=== PATIENT | male | born 1950 | race Caucasian/White ===

== ENCOUNTER 2020-11-13 09:54 | Observation (INO) | payer MEDICARE ==
[2020-11-13] MEDS ORDERED: ASPIRIN 81 MG PO STA (10:01)
[2020-11-13 10:26] LABS: Basophils % (A) 1 %; Eosinophils # (A) 0.1 k/uL (0-0.7); Eosinophils % (A) 2 %; HCT 46.6 % (39.0-53.0); HGB 15.4 gm/dL (13.0-17.5); Lymphocytes % (A) 22 %; MCH 30.5 pg (25.0-35.0); MCHC 33.2 g/dL (31.0-37.0); MCV 92.1 fL (80.0-100.0); Mean Platelet Volume 6.9; Monocytes # (A) 0.2 k/uL (0-1.0); Monocytes % (A) 5 %; Neutrophils # (A) 3.3 k/uL (1.3-7.7); Neutrophils % (A) 69 %; Platelet Count 155 k/uL (150-450); RBC 5.06 m/uL (4.30-5.90); RDW 14.5 % (11.5-15.5); WBC 4.8 k/uL (3.8-10.6)
--- NOTE | 2020-11-13 10:35 | ED ---
Chest Pain HPI - General Chief Complaint: Chest Pain Stated Complaint: Chest pain Time Seen by Provider: 11/13/20 10:00 Source: patient, family, RN notes reviewed Mode of arrival: ambulatory Limitations: no limitations - History of Present Illness Initial Comments: 70-year-old male presents emergency Department chief complaint chest discomfort. Patient states his started last night worsened today. Patient states on his left side rates his left shoulder. Patient states she does have some symptoms into his left hand he does have a history of A. fib on Xarelto no prior cardiac stents does have a history of hypertension hyperlipidemia. 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 No fevers or chills no cough or cold like symptoms no shortness of breath - Related Data Home Medications Medication Instructions Recorded Confirmed Allopurinol [Zyloprim] 300 mg PO HS 12/12/14 11/13/20 Ascorbic Acid [Vitamin C] 500 mg PO HS 12/12/14 11/13/20 Flecainide Acetate [Tambocor] 100 mg PO BID PRN 12/12/14 11/13/20 Irbesartan 300 mg PO DAILY 12/12/14 11/13/20 Levothyroxine Sodium [Synthroid] 200 mcg PO MOTUWETHFRSA 12/12/14 11/13/20 Multivitamins, Thera [Multivitamin 1 tab PO HS 12/12/14 11/13/20 (formulary)] Omeprazole [PriLOSEC] 20 mg PO AC-BRKFST 12/12/14 11/13/20 Rivaroxaban [Xarelto] 20 mg PO HS 12/12/14 11/13/20 Cbd Cream 1 applic TOPICAL DAILY PRN 11/13/20 11/13/20 DULoxetine HCL [Cymbalta] 60 mg PO BID 11/13/20 11/13/20 Glimepiride [Amaryl] 1 mg PO BID 11/13/20 11/13/20 L.acidoph,Paracasei, B.lactis 1 cap PO HS 11/13/20 11/13/20 [Probiotic] Melatonin 10 mg PO HS 11/13/20 11/13/20 Polyethylene Glycol 3350 [Miralax] 17 gm PO DAILY 11/13/20 11/13/20 Pregabalin [Lyrica] 150 mg PO BID 11/13/20 11/13/20 Stool Softner 1 tab PO BID 11/13/20 11/13/20 Tamsulosin [Flomax] 0.4 mg PO BID 11/13/20 11/13/20 amLODIPine [Norvasc] 5 mg PO HS 11/13/20 11/13/20 traMADol HCL 50 mg PO BID 11/13/20 11/13/20 Allergies Allergy/AdvReac Type Severity Reaction Status Date / Time ampicillin Allergy high fever Verified 11/13/20 11:11 chlorthalidone Allergy Rash/Hives Verified 11/13/20 11:11 tolmetin sodium Allergy Chest Pain Verified 11/13/20 11:11 [From Tolectin] Review of Systems ROS Statement: Those systems with pertinent positive or pertinent negative responses have been documented in the HPI. ROS Other: All systems not noted in ROS Statement are negative. Past Medical History Past Medical History: Atrial Fibrillation, Diabetes Mellitus, Hypertension Additional Past Medical History / Comment(s): See Dr Black H&P, hx skin cancer, "borderline liver enzymes", gout, History of Any Multi-Drug Resistant Organisms: None Reported Past Surgical History: Cardiac Ablation, Heart Catheterization, Joint Replacement, Orthopedic Surgery, Tonsillectomy Additional Past Surgical History / Comment(s): left hip replacement, charles carpal tunnel, surgery for sleep apnea, rt rotator cuff, 12-13-14 CARDIAC ABLATION Past Anesthesia/Blood Transfusion Reactions: No Reported Reaction Past Psychological History: No Psychological Hx Reported Smoking Status: Never smoker Past Alcohol Use History: None Reported Past Drug Use History: None Reported - Past Family History Father Family Medical History: Deep Vein Thrombosis (DVT) General Exam Limitations: no limitations General appearance: alert, in no apparent distress Head exam: Present: atraumatic, normocephalic, normal inspection Eye exam: Present: normal appearance, PERRL, EOMI. Absent: scleral icterus, conjunctival injection, periorbital swelling ENT exam: Present: normal exam, mucous membranes moist Neck exam: Present: normal inspection. Absent: tenderness, meningismus, lymphadenopathy Respiratory exam: Present: normal lung sounds bilaterally. Absent: respiratory distress, wheezes, rales, rhonchi, stridor Cardiovascular Exam: Present: regular rate, normal rhythm, normal heart sounds. Absent: systolic murmur, diastolic murmur, rubs, gallop, clicks GI/Abdominal exam: Present: soft, normal bowel sounds. Absent: distended, tenderness, guarding, rebound, rigid Course Vital Signs 11/13/20 09:56 Temperature 97.5 F L Pulse Rate 74 Respiratory 20 Rate Blood Pressure 124/73 O2 Sat by Pulse 98 Oximetry Chest Pain MDM - MDM 70-year-old male in for chest pain. Patient's workup is negative this time. Patient does have multiple risk factors will be admitted for cardiology evaluation. Patient is currently on anticoagulation will be continued. Disposition Clinical Impression: Chest pain Disposition: ADMITTED IP TO THIS HOSP Condition: Fair Referrals: Flip Colon DO [Primary Care Provider] - 1-2 days
[2020-11-13 10:37] LABS: INR 1.1 (<1.2); Partial Thromboplastin Time 29.6 sec (22.0-30.0); Prothrombin Time 11.7 sec (9.0-12.0)
[2020-11-13 10:50] LABS: Albumin 4.3 g/dL (3.5-5.0); Calcium 11.1 mg/dL (8.4-10.2); Magnesium 1.9 mg/dL (1.6-2.3); Potassium 4.4 mmol/L (3.5-5.1); Total Bilirubin 0.6 mg/dL (0.2-1.3); Total Protein 6.9 g/dL (6.3-8.2)
--- NOTE | 2020-11-13 11:10 | XR ---
EXAMINATION TYPE: XR chest 2V DATE OF EXAM: 11/13/2020 COMPARISON: 12/10/2014 HISTORY: Shortness of breath TECHNIQUE: Frontal and lateral views of the chest are obtained. FINDINGS: Scattered senescent parenchymal changes noted. Hyperinflation compatible with COPD. No evidence for infiltrate. No evidence for atelectasis. Heart size is stable. Mediastinal structures are stable and grossly unremarkable. No evidence for hilar prominence. Degenerative changes dorsal spine. IMPRESSION: 1. No evidence for acute pulmonary disease.
[2020-11-13] MEDS ORDERED: NITROGLYCERIN SL TABS 0.4 MG TAB SUBLINGUAL PRN (11:48)
[2020-11-13] MEDS ORDERED: FLECAINIDE 50 MG TAB PO PRN (11:50)
[2020-11-13] MEDS ORDERED: CBD TOPICAL PRN (11:50)
[2020-11-13] MEDS: LEVOTHYROXINE 100 MCG TAB PO SCH (13:11)
[2020-11-13] MEDS ORDERED: RX INFO: IV CONTRAST WAS GIVEN 1 EACH MISC MISCELLANE PRN (13:48)
--- NOTE | 2020-11-13 16:54 | CT ---
CT CHEST FOR PULMONARY EMBOLISM. EXAMINATION TYPE: CT angio chest DATE OF EXAM: 11/13/2020 INDICATION: R/O dissection pt c/o back pain between shoulders CT DLP: 690 mGycm, Automated exposure control for dose reduction was used. CONTRAST: Patient injected with 100 mL of Isovue 370. COMPARISON: None TECHNIQUE: CT of the chest is performed on a spiral scan at 2 mm thick sections. Study is performed with intravenous contrast timed for evaluation for aortic dissection. This will limit additional por tions of the evaluation. 3-D MIP images reconstructed by the technologist are reviewed on the [facility] er in the coronal and sagittal planes. FINDINGS: No suspicious aortic dissection is evident. No aneurysmal dilatation is evident. No mediastinal or hilar adenopathy enlarged by CT criteria is evident. The ascending aorta diameter at the level of the main pulmonary artery is 3.9 cm. The main pulmonary artery diameter at the bifur cation is 2.9 cm. Lung windows are clear. Limited CT section through the upper abdomen are unremarkable. IMPRESSIONS: 1. No aortic dissection. 2. Ascending thoracic aorta measures 3.9 cm.
[2020-11-13] MEDS ORDERED: ACETAMINOPHEN TAB 325 MG TAB PO PRN (17:07)
[2020-11-13] MEDS ORDERED: LACTULOSE 20 GM/30 ML CUP PO PRN (17:07)
[2020-11-13] MEDS ORDERED: CALCIUM CARBONATE 500 MG CHEWABLE PO PRN (17:07)
[2020-11-13] MEDS ORDERED: ONDANSETRON 4 MG/2 ML VIAL IVP PRN (17:07)
[2020-11-13] MEDS ORDERED: ALPRAZolam 0.25 MG TAB PO PRN (17:07)
[2020-11-13] MEDS ORDERED: MAGNESIUM HYDROXIDE 2,400 MG/10 ML CUP PO PRN (17:07)
[2020-11-13] MEDS ORDERED: MAG HYDROX/AL HYDROX/SIMETH 30 ML CUP PO PRN (17:07)
[2020-11-13] MEDS ORDERED: NALOXONE 0.4 MG/ML 1 ML VIAL IV PRN (17:07)
--- NOTE | 2020-11-13 17:12 | P.HPIM ---
History of Present Illness H&P Date: 11/13/20 Chief Complaint: Chest pain History of presenting complaint: This is a very pleasant 70-year-old patient of Dr. Colon. Orthotic Practitioner is Dr. Black. Chronic stable medical conditions include atrial fibrillation with history of ablation, cardiac catheterization many years ago that was unremarkable, diabetes, hypertension, BPH. Last night patient developed left- sided anterior chest and felt like pressure. Did also go through the shoulder blades. This morning. Also went to the left arm. No dizziness, lightheadedness. Also developed some nausea. Patient decided to come in. Minimal pain this afternoon. at the bedside. Patient is hard of hearing. Review of systems: GEN.: Tired EYES: None HEENT: Decreased hearing, uses hearing aids NECK: None RESPIRATORY: None CARDIOVASCULAR: As above GASTROINTESTINAL: None GENITOURINARY: None MUSCULOSKELETAL: Joint pains LYMPHATICS: None HEMATOLOGICAL: None PSYCHIATRY: None NEUROLOGICAL: None Past medical history to include: Atrial fibrillation, diabetes, hypertension, heart of feeding, skin cancer, gout, BPH Social history: . 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 No history of alcohol or smoking. Family history: DVT Physical examination: VITAL SIGNS: 97.5, 74, 20, 120/73, 98% room air GENERAL: BMI 33.7, sitting up in bed, comfortable. EYES: Pupils equal. Conjunctiva normal. HEENT: External appearance of nose and ears normal, oral cavity grossly normal. NECK: JVD not raised; masses not palpable. HEART: First and second heart sounds are normal; no edema. LUNGS: Respiratory rate normal; clear to auscultation. ABDOMEN: Soft, nontender, liver spleen not palpable, no masses palpable. PSYCH: Alert and oriented x3; mood and affect normal. MUSCULAR skeletal: Evidence of some more in the hands NEUROLOGICAL: Cranial nerves grossly intact; no facial asymmetry, power and sensation grossly intact. LYMPHATICS: No lymph nodes palpable in the axilla and neck INVESTIGATIONS, reviewed in the clinical context: WBC 4.8 hemoglobin 15.4 platelets 155 potassium 4.4 creatinine 1.05 Troponin I 3 negative EKG tracing personally reviewed by me-normal sinus rhythm, nonspecific T-wave changes Chest x-ray film personally reviewed by me-no infiltrate CT [place] chest: No aortic dissection. Ascending aortic out of 3.9 cm Assessment and plan: -Left anterior chest fall. With the radiation between the shoulder blades in the arm. Overnight. EKG has nonspecific T-wave changes. Troponins are n egative. Patient will need at least a stress test. -Paroxysmal atrial fibrillation with a history of ablation. Currently in sinus rhythm Continue with flecainide when necessary, xarelto -Essential hypertension On amlodipine,irbesartan -Chronic gout On allopurinol -Depression otherwise specified On Cymbalta -Diabetes mellitus type 2, on oral hypoglycemic On Amaryl. Follow Accu-Cheks -Hypothyroid On Synthroid -GERD On Prilosec -Obesity BMI 33.7 Weight loss measures -BPH On Flomax -Primary osteoarthritis multiple joints Use pain medicines as needed -Chronic insomnia for medical conditions On melatonin -Ascending aorta aneurysm 3.9 cm. Follow-up with cardiothoracic surgery as outpatient Initially CT angiogram chest was done to rule out dissection. Home medications resumed. Cardiology consulted. Follow Accu-Cheks. Care was discussed the patient and at the bedside. Questions answered. Past Medical History Past Medical History: Atrial Fibrillation, Diabetes Mellitus, Hypertension Additional Past Medical History / Comment(s): See Dr Black H&P, hx skin cancer, "borderline liver enzymes", gout, History of Any Multi-Drug Resistant Organisms: None Reported Past Surgical History: Cardiac Ablation, Heart Catheterization, Joint Replacement, Orthopedic Surgery, Tonsillectomy Additional Past Surgical History / Comment(s): left hip replacement, charles carpal tunnel, surgery for sleep apnea, rt rotator cuff, 12-13-14 CARDIAC ABLATION Past Anesthesia/Blood Transfusion Reactions: No Reported Reaction Past Psychological History: No Psychological Hx Reported Smoking Status: Never smoker Past Alcohol Use History: None Reported Past Drug Use History: None Reported - Past Family History Father Family Medical History: Deep Vein Thrombosis (DVT) Medications and Allergies Home Medications Medication Instructions Recorded Confirmed Type Allopurinol [Zyloprim] 300 mg PO HS 12/12/14 11/13/20 History Ascorbic Acid [Vitamin C] 500 mg PO HS 12/12/14 11/13/20 History Flecainide Acetate [Tambocor] 100 mg PO BID PRN 12/12/14 11/13/20 History Irbesartan 300 mg PO DAILY 12/12/14 11/13/20 History Levothyroxine Sodium [Synthroid] 200 mcg PO MOTUWETHFRSA 12/12/14 11/13/20 History Multivitamins, Thera [Multivitamin 1 tab PO HS 12/12/14 11/13/20 History (formulary)] Omeprazole [PriLOSEC] 20 mg PO AC-BRKFST 12/12/14 11/13/20 History Rivaroxaban [Xarelto] 20 mg PO HS 12/12/14 11/13/20 History Cbd Cream 1 applic TOPICAL DAILY PRN 11/13/20 11/13/20 History DULoxetine HCL [Cymbalta] 60 mg PO BID 11/13/20 11/13/20 History Glimepiride [Amaryl] 1 mg PO BID 11/13/20 11/13/20 History L.acidoph,Paracasei, B.lactis 1 cap PO HS 11/13/20 11/13/20 History [Probiotic] Melatonin 10 mg PO HS 11/13/20 11/13/20 History Polyethylene Glycol 3350 [Miralax] 17 gm PO DAILY 11/13/20 11/13/20 History Pregabalin [Lyrica] 150 mg PO BID 11/13/20 11/13/20 History Stool Softner 1 tab PO BID 11/13/20 11/13/20 History Tamsulosin [Flomax] 0.4 mg PO BID 11/13/20 11/13/20 History amLODIPine [Norvasc] 5 mg PO HS 11/13/20 11/13/20 History traMADol HCL 50 mg PO BID 11/13/20 11/13/20 History Allergies Allergy/AdvReac Type Severity Reaction Status Date / Time ampicillin Allergy high fever Verified 11/13/20 11:11 chlorthalidone Allergy Rash/Hives Verified 11/13/20 11:11 tolmetin sodium Allergy Chest Pain Verified 11/13/20 11:11 [From Tolectin] Physical Exam Vitals: Vital Signs Temp Pulse Pulse Pulse Resp BP BP 11/13/20 14:32 97.3 F L 67 18 107/66 11/13/20 12:09 79 16 136/79 11/13/20 12:02 97.5 F L 62 16 121/77 11/13/20 09:56 97.5 F L 74 20 124/73 Pulse Ox 11/13/20 14:32 96 11/13/20 12:09 99 11/13/20 12:02 100 11/13/20 09:56 98 Intake and Output 11/13/20 11/13/20 11/13/20 06:59 14:59 22:59 Intake Total 237 Balance 237 Intake: Oral 237 Other: # Voids 1 Weight 106.594 kg Results CBC & Chem 7: 11/13/20 10:03 11/13/20 10:03 Labs: Abnormal Lab Results - Last 24 Hours (Table) 11/13/20 Range/Units 10:03 BUN 26 H (9-20) mg/dL Glucose 115 H (74-99) mg/dL Calcium 11.1 H (8.4-10.2) mg/dL Alkaline Phosphatase 144 H (38-126) U/L Thrombosis Risk Factor Assmnt - Choose All That Apply Each Factor Represents 1 point: Obesity (BMI >25) Each Risk Factor Represents 2 Points: Age 61-74 years Thrombosis Risk Factor Assessment Total Risk Factor Score: 3 Thrombosis Risk Factor Assessment Level: Moderate Risk
[2020-11-13 17:35] LABS: Glucose,Whole Blood 105 mg/dL (75-99)
[2020-11-13] MEDS: INSULIN ASPART (NovoLOG) 100 UNIT/ML VIAL SQ SCH ×2 (17:55→21:24)
[2020-11-13 20:11] LABS: Glucose,Whole Blood 112 mg/dL (75-99)
[2020-11-13] MEDS ORDERED: LACTOBACILLUS ACIDOPH & BULGAR 1 EACH PACKET PO SCH (21:00)
[2020-11-13] MEDS ORDERED: MELATONIN 5 MG TABLET PO SCH (21:00)
[2020-11-13] MEDS ORDERED: amLODIPine 5 MG TAB PO SCH (21:00)
[2020-11-13] MEDS ORDERED: allopurinoL 300 MG TAB PO SCH (21:00)
[2020-11-13] MEDS ORDERED: MULTIVITAMINS, THERA 1 EACH TAB PO SCH (21:00)
[2020-11-13] MEDS ORDERED: RIVAROXABAN 20 MG TAB PO SCH (21:00)
[2020-11-13] MEDS ORDERED: ASCORBIC ACID 500 MG TAB PO SCH (21:00)
[2020-11-13] MEDS: DULoxetine HCL 60 MG CAPSULE.DR PO SCH (21:33)
[2020-11-13] MEDS: PREGABALIN 75 MG CAP PO SCH (21:33)
[2020-11-13] MEDS: TAMSULOSIN 0.4 MG CAP.ER.24H PO SCH (21:34)
[2020-11-13] MEDS: traMADol 50 MG TAB PO SCH (21:34)
[2020-11-13] MEDS: GLIMEPIRIDE 1 MG TAB PO SCH (22:05)
[2020-11-14] MEDS: LEVOTHYROXINE 100 MCG TAB PO SCH (05:57)
[2020-11-14] MEDS ORDERED: PANTOPRAZOLE 40 MG TABLET PO SCH (07:30)
[2020-11-14 07:42] LABS: Glucose,Whole Blood 88 mg/dL (75-99)
[2020-11-14 07:54] VITALS: BP 111/70; PULSE 63; RESP 17; TEMP 97.5
[2020-11-14] MEDS: INSULIN ASPART (NovoLOG) 100 UNIT/ML VIAL SQ SCH (08:03)
[2020-11-14] MEDS ORDERED: IBUPROFEN 400 MG TAB PO STA (08:30)
[2020-11-14] MEDS: traMADol 50 MG TAB PO SCH (08:39)
[2020-11-14] MEDS: TAMSULOSIN 0.4 MG CAP.ER.24H PO SCH (08:39)
[2020-11-14] MEDS: PREGABALIN 75 MG CAP PO SCH (08:39)
[2020-11-14] MEDS: GLIMEPIRIDE 1 MG TAB PO SCH (08:39)
[2020-11-14] MEDS: DULoxetine HCL 60 MG CAPSULE.DR PO SCH (08:39)
[2020-11-14] MEDS ORDERED: polyethylene glycoL 3350 17 GM POWD.PACK PO SCH (09:00)
[2020-11-14] MEDS ORDERED: LOSARTAN 50 MG TAB PO SCH (09:00)
[2020-11-14] MEDS ORDERED: ASPIRIN 325 MG TAB PO SCH (09:00)
--- NOTE | 2020-11-14 10:28 | P.CRDCN ---
History of Present Illness History of present illness: HISTORY OF PRESENTING ILLNESS This is a pleasant 70-year-old male past medical history significant for atrial fibrillation s/p ablation, non-obstructive CAD, hypertension, diabete s mellitus and gout. He follows in the office with Dr. Black. We have been asked to see in consultation for chest pain. He states on Wednesday night he started feeling a pain in his chest in the left precordial region that radiated through to his back in the left scapular region. The pain is described as a nagging sensation. He had no associated symptoms. The pain was not exacerbated by activity or exertion. He was able to fall asleep. He woke up in the morning with ongoing discomfort that actually seemed to be a little bit worse prompting him to come to the hospital for further evaluation. He states throughout the day yesterday the pain was there but not getting any worse and slowly actually began to subside. He is currently chest pain-free. The pain does come back mildly with deep inspiration. DIAGNOSTICS EKG reveals sinus mechanism with nonspecific abnormalities noted 2. Telemetry tracings indicate persistent sinus mechanism. Chest xray negative for an acute cardiopulmonary process. CTA performed reveals an ascending thoracic aorta measuring 3.9 cm. Laboratory reviewed, CBC unremarkable, sodium 139, potassium 4.4, creatinine 1.05, magnesium 1.9, cardiac enzymes negative 3. Current cardiac medications include flecainide 100 mg twice a day as needed for palpitations, irbesartan 300 mg daily, Xarelto 20 mg daily and amlodipine 5 mg daily. Most recent stress test performed in the office July 2019 with a Cardiolite stress test that was negative for stress-induced reversible ischemia. Most recent echocardiogram obtained in the office May 2020 revealed preserved LV systolic function with ejection fraction 50-55%, normal diastolic function and no valvular abnormalities noted. REVIEW OF SYSTEMS At the time of my exam: CONSTITUTIONAL: Denies fever or chills. CARDIOVASCULAR: Denies chest pain, shortness of breath, orthopnea, PND or palpitations. RESPIRATORY: Denies cough. GASTROINTESTINAL: Denies abdominal pain, diarrhea, constipation, nausea or vomiting. MUSCULOSKELETAL: Denies myalgias. NEUROLOGIC: Denies numbness, tingling, headacbe or weakness. ENDOCRINE: Denies fatigue, weight change, polydipsia or polyurina. GENITOURINARY: Denies burning, hematuria or urgency with micturation. HEMATOLOGIC: Denies history of anemia or bleeding. PHYSICAL EXAMINATION Blood pressure 111/70 heart rate 63 afebrile and maintaining oxygen saturation on room air. CONSTITUTIONAL: No apparent distress. HEENT: Head is normocephalic. Pupils are equal, round. Sclerae anicteric. Mucous membranes of the mouth are moist. No JVD. No carotid bruit. CHEST EXAMINATION: Lungs are clear to auscultation. No chest wall tenderness is noted on palpation or with deep breathing. HEART EXAMINATION: Regular rate and rhythm. S1, S2 heard. No murmurs, gallops or rub. ABDOMEN: Soft, nontender. Positive bowel sounds. EXTREMITIES: 2+ peripheral pulses, no lower extremity edema and no calf tenderness. NEUROLOGIC EXAMINATION: Patient is awake, alert and oriented x3. ASSESSMENT Chest pain, atypical and reproducible Paroxysmal atrial fibrillation status post ablation Hypertension Diabetes mellitus PLAN An acute coronary event has been ruled out. Pain is atypical for angina. Likely due to musculoskeletal strain. Increase activity and ambulation in the halls. The patient has no exertional chest pain. Stable for discharge from a cardiac perspective. Thank you kindly for this consultation. Nurse Practitioner note has been reviewed, I agree with a documented findings and plan of care. Patient was seen and examined. Past Medical History Past Medical History: Atrial Fibrillation, Diabetes Mellitus, Hypertension Additional Past Medical History / Comment(s): See Dr Black H&P, hx skin cancer, "borderline liver enzymes", gout, History of Any Multi-Drug Resistant Organisms: None Reported Past Surgical History: Cardiac Ablation, Heart Catheterization, Joint Replacement, Orthopedic Surgery, Tonsillectomy Additional Past Surgical History / Comment(s): left hip replacement, charles carpal tunnel, surgery for sleep apnea, rt rotator cuff, 12-13-14 CARDIAC ABLATION Past Anesthesia/Blood Transfusion Reactions: No Reported Reaction Past Psychological History: No Psychological Hx Reported Smoking Status: Never smoker Past Alcohol Use History: None Reported Past Drug Use History: None Reported - Past Family History Father Family Medical History: Deep Vein Thrombosis (DVT) Medications and Allergies Home Medications Medication Instructions Recorded Confirmed Type Allopurinol [Zyloprim] 300 mg PO HS 12/12/14 11/13/20 History Ascorbic Acid [Vitamin C] 500 mg PO HS 12/12/14 11/13/20 History Flecainide Acetate [Tambocor] 100 mg PO BID PRN 12/12/14 11/13/20 History Irbesartan 300 mg PO DAILY 12/12/14 11/13/20 History Levothyroxine Sodium [Synthroid] 200 mcg PO MOTUWETHFRSA 12/12/14 11/13/20 History Multivitamins, Thera [Multivitamin 1 tab PO HS 12/12/14 11/13/20 History (formulary)] Omeprazole [PriLOSEC] 20 mg PO AC-BRKFST 12/12/14 11/13/20 History Rivaroxaban [Xarelto] 20 mg PO HS 12/12/14 11/13/20 History Cbd Cream 1 applic TOPICAL DAILY PRN 11/13/20 11/13/20 History DULoxetine HCL [Cymbalta] 60 mg PO BID 11/13/20 11/13/20 History Glimepiride [Amaryl] 1 mg PO BID 11/13/20 11/13/20 History L.acidoph,Paracasei, B.lactis 1 cap PO HS 11/13/20 11/13/20 History [Probiotic] Melatonin 10 mg PO HS 11/13/20 11/13/20 History Polyethylene Glycol 3350 [Miralax] 17 gm PO DAILY 11/13/20 11/13/20 History Pregabalin [Lyrica] 150 mg PO BID 11/13/20 11/13/20 History Stool Softner 1 tab PO BID 11/13/20 11/13/20 History Tamsulosin [Flomax] 0.4 mg PO BID 11/13/20 11/13/20 History amLODIPine [Norvasc] 5 mg PO HS 11/13/20 11/13/20 History traMADol HCL 50 mg PO BID 11/13/20 11/13/20 History Allergies Allergy/AdvReac Type Severity Reaction Status Date / Time ampicillin Allergy high fever Verified 11/13/20 11:11 chlorthalidone Allergy Rash/Hives Verified 11/13/20 11:11 tolmetin sodium Allergy Chest Pain Verified 11/13/20 11:11 [From Tolectin] Physical Exam Vitals: Vital Signs Temp Pulse Pulse Pulse Resp BP BP 11/14/20 07:00 97.5 F L 63 17 111/70 11/14/20 02:00 97.6 F 65 18 112/68 11/14/20 01:25 66 11/13/20 20:00 66 16 11/13/20 19:04 98.1 F 66 16 118/75 11/13/20 14:32 97.3 F L 67 18 107/66 11/13/20 12:09 79 16 136/79 11/13/20 12:02 97.5 F L 62 16 121/77 11/13/20 09:56 97.5 F L 74 20 124/73 Pulse Ox 11/14/20 07:00 97 11/14/20 02:00 97 11/14/20 01:25 11/13/20 20:00 11/13/20 19:04 98 11/13/20 14:32 96 11/13/20 12:09 99 11/13/20 12:02 100 11/13/20 09:56 98 Intake and Output 11/13/20 11/14/20 11/14/20 22:59 06:59 14:59 Intake Total 237 Balance 237 Intake: Oral 237 Other: Voiding Method Toilet # Voids 1 3 Results 11/13/20 10:03 11/13/20 10:03 Cardiac Enzymes 11/13/20 11/13/20 11/13/20 Range/Units 10:03 10:03 12:39 AST 24 (17-59) U/L Troponin I <0.012 <0.012 (0.000-0.034) ng/mL 11/13/20 Range/Units 15:35 AST (17-59) U/L Troponin I <0.012 (0.000-0.034) ng/mL Coagulation 11/13/20 Range/Units 10:03 PT 11.7 (9.0-12.0) sec APTT 29.6 (22.0-30.0) sec CBC 11/13/20 Range/Units 10:03 WBC 4.8 (3.8-10.6) k/uL RBC 5.06 (4.30-5.90) m/uL Hgb 15.4 (13.0-17.5) gm/dL Hct 46.6 (39.0-53.0) % Plt Count 155 (150-450) k/uL Comprehensive Metabolic Panel 11/13/20 Range/Units 10:03 Sodium 139 (137-145) mmol/L Potassium 4.4 (3.5-5.1) mmol/L Chloride 106 (98-107) mmol/L Carbon Dioxide 25 (22-30) mmol/L BUN 26 H (9-20) mg/dL Creatinine 1.05 (0.66-1.25) mg/dL Glucose 115 H (74-99) mg/dL Calcium 11.1 H (8.4-10.2) mg/dL AST 24 (17-59) U/L ALT 21 (4-49) U/L Alkaline Phosphatase 144 H (38-126) U/L Total Protein 6.9 (6.3-8.2) g/dL Albumin 4.3 (3.5-5.0) g/dL Current Medications Generic Name Dose Route Start Last Admin Trade Name Freq PRN Reason Stop Dose Admin Acetaminophen 650 mg 11/13/20 17:07 Acetaminophen Tab 325 Mg Tab PO Q6HR PRN Mild Pain or Fever > 100.5 Al Hydroxide/Mg Hydroxide 15 ml 11/13/20 17:07 Mag Hydrox/Al Hydrox/Simeth 30 Ml Cup PO Q6HR PRN Indigestion Allopurinol 300 mg 11/13/20 21:00 11/13/20 21:35 Allopurinol 300 Mg Tab PO 300 mg HS MATTHIAS Administration Alprazolam 0.25 mg 11/13/20 17:07 Alprazolam 0.25 Mg Tab PO Q6HR PRN Anxiety Amlodipine Besylate 5 mg 11/13/20 21:00 11/13/20 21:34 Amlodipine 5 Mg Tab PO 5 mg HS MATTHIAS Administration Ascorbic Acid 500 mg 11/13/20 21:00 11/13/20 21:34 Ascorbic Acid 500 Mg Tab PO 500 mg HS MATTHIAS Administration Aspirin 325 mg 11/14/20 09:00 Aspirin 325 Mg Tab PO DAILY MATTHIAS Calcium Carbonate/Glycine 1,000 mg 11/13/20 17:07 Calcium Carbonate 500 Mg Chewable PO Q4HR PRN Dyspepsia Duloxetine HCl 60 mg 11/13/20 21:00 11/13/20 21:33 Duloxetine Hcl 60 Mg Capsule.Dr PO 60 mg BID MATTHIAS Administration Flecainide Acetate 100 mg 11/13/20 11:50 Flecainide 50 Mg Tab PO BID PRN AFIB Glimepiride 1 mg 11/13/20 21:00 11/13/20 22:05 Glimepiride 1 Mg Tab PO 1 mg BID MATTHIAS Administration Insulin Aspart 0 unit 11/13/20 17:30 11/14/20 08:03 Insulin Aspart (Novolog) 100 Unit/Ml Vial SQ Not Given ACHS [facility] Protocol Lactobacillus Acidoph/Bulgaricus 1 each 11/13/20 21:00 11/13/20 22:04 Lactobacillus Acidoph & Bulgar 1 Each Packet PO 1 each HS MATTHIAS Administration Lactulose 20 gm 11/13/20 17:07 Lactulose 20 Gm/30 Ml Cup PO DAILY PRN Constipation Levothyroxine Sodium 200 mcg 11/13/20 12:00 11/14/20 05:57 Levothyroxine 100 Mcg Tab PO 200 mcg [id number] MATTHIAS Administration Losartan Potassium 100 mg 11/14/20 09:00 Losartan 50 Mg Tab PO DAILY MATTHIAS Magnesium Hydroxide 2,400 mg 11/13/20 17:07 Magnesium Hydroxide 2,400 Mg/10 Ml Cup PO DAILY PRN Constipation Melatonin 10 mg 11/13/20 21:00 11/13/20 21:33 Melatonin 5 Mg Tablet PO 10 mg HS MATTHIAS Administration Miscellaneous Information 1 each 11/13/20 13:48 Rx Info: Iv Contrast Was Given 1 Each Misc MISCELLANE 11/15/20 13:49 DAILY PRN Per Protocol Multivitamins 1 each 11/13/20 21:00 11/13/20 21:34 Multivitamins, Thera 1 Each Tab PO 1 each HS MATTHIAS Administration Naloxone HCl 0.2 mg 11/13/20 17:07 Naloxone 0.4 Mg/Ml 1 Ml Vial IV Q2M PRN Opioid Reversal Nitroglycerin 0.4 mg 11/13/20 11:48 Nitroglycerin Sl Tabs 0.4 Mg Tab SUBLINGUAL Q5M PRN Chest Pain Ondansetron HCl 4 mg 11/13/20 17:07 Ondansetron 4 Mg/2 Ml Vial IVP Q8HR PRN Nausea And Vomiting Pantoprazole Sodium 40 mg 11/14/20 07:30 Pantoprazole 40 Mg Tablet PO AC-BRKFST MATTHIAS Polyethylene Glycol 17 gm 11/14/20 09:00 Polyethylene Glycol 3350 17 Gm Powd.Pack PO DAILY MATTHIAS Pregabalin 150 mg 11/13/20 21:00 11/13/20 21:33 Pregabalin 75 Mg Cap PO 150 mg BID MATTHIAS Administration Rivaroxaban 20 mg 11/13/20 21:00 11/13/20 22:05 Rivaroxaban 20 Mg Tab PO 20 mg HS MATTHIAS Administration Protocol Tamsulosin HCl 0.4 mg 11/13/20 21:00 11/13/20 21:34 Tamsulosin 0.4 Mg Cap.Er.24h PO 0.4 mg BID MATTHIAS Administration Tramadol HCl 50 mg 11/13/20 21:00 11/13/20 21:34 Tramadol 50 Mg Tab PO 50 mg BID MATTHIAS Administration Intake and Output 11/13/20 11/14/20 11/14/20 22:59 06:59 14:59 Intake Total 237 Balance 237 Intake: Oral 237 Other: Voiding Method Toilet # Voids 1 3 11/13/20 10:03 11/13/20 10:03
[2020-11-14 10:49] LABS: Chol/HDL Ratio 5.51
--- NOTE | 2020-11-14 19:57 | P.DS ---
Providers Date of admission: 11/13/20 11:48 Expected date of discharge: 11/14/20 Attending physician: Thom Sy Consults: 11/13/20 11:48 Consult Physician Urgent Consulting Provider: Rivera Black Consult Reason/Comments: chest pain Do you want consulting provider notified?: Yes Primary care physician: Flip Aguila [facility] Course: Chief Complaint: Chest pain History of presenting complaint: This is a very pleasant 70-year-old patient of Dr. Colon. Fibre Composite Technician is Dr. Black. Chronic stable medical conditions include atrial fibrillation with history of ablation, cardiac catheterization many years ago that was unremarkable, diabetes, hypertension, BPH. Last night patient developed left- sided anterior chest and felt like pressure. Did also go through the shoulder blades. This morning. Also went to the left arm. No dizziness, lightheadedness. Also developed some nausea. Patient decided to come in. Minimal pain this afternoon. at the bedside. Patient is hard of hearing. Troponin was negative. EKG showed nonspecific T-wave changes. Chest CT- negative. November 14: Patient was seen by cardiology. Cleared for discharge. Anderson to be muscular schedule. Patient feels well. He informs. He's had a negative stress test per cardiology not to long ago Consultation: Dr. Rivera Black from cardiology Past medical history to include: Atrial fibrillation, diabetes, hypertension, heart of feeding, skin cancer, gout, BPH Social history: . 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 No history of alcohol or smoking. Family history: DVT Physical examination: VITAL SIGNS: 97.5, 16, 17, 111/70, 97% room air GENERAL: BMI 33.7, sitting up in bed, comfortable. EYES: Pupils equal. Conjunctiva normal. HEENT: External appearance of nose and ears normal, oral cavity grossly normal. NECK: JVD not raised; masses not palpable. HEART: First and second heart sounds are normal; no edema. LUNGS: Respiratory rate normal; clear to auscultation. ABDOMEN: Soft, nontender, liver spleen not palpable, no masses palpable. PSYCH: Alert and oriented x3; mood and affect normal. MUSCULAR skeletal: Evidence of some more in the hands NEUROLOGICAL: Cranial nerves grossly intact; no facial asymmetry, power and sensation grossly intact. LYMPHATICS: No lymph nodes palpable in the axilla and neck INVESTIGATIONS, reviewed in the clinical context: WBC 4.8 hemoglobin 15.4 platelets 155 potassium 4.4 creatinine 1.05 Troponin I 3 negative EKG tracing personally reviewed by me-normal sinus rhythm, nonspecific T-wave c hanges Chest x-ray film personally reviewed by me-no infiltrate CT [place] chest: No aortic dissection. Ascending aortic out of 3.9 cm Assessment and plan: -Left anterior chest fall. Anderson to be musculoskeletal per cardiology. -Paroxysmal atrial fibrillation with a history of ablation. Currently in sinus rhythm Continue with flecainide when necessary, xarelto -Essential hypertension On amlodipine,irbesartan -Chronic gout On allopurinol -Depression otherwise specified On Cymbalta -Diabetes mellitus type 2, on oral hypoglycemic On Amaryl. Follow Accu-Cheks -Hypothyroid On Synthroid -GERD On Prilosec -Obesity BMI 33.7 Weight loss measures -BPH On Flomax -Primary osteoarthritis multiple joints Use pain medicines as needed -Chronic insomnia for medical conditions On melatonin -Ascending aorta aneurysm 3.9 cm. Follow-up with cardiothoracic surgery as outpatient Disposition: Home Patient Condition at Discharge: Fair Plan - Discharge Summary Discharge Rx Participant: No New Discharge Prescriptions: New Nitroglycerin Sl Tabs [Nitrostat] 0.4 mg SUBLINGUAL Q5M PRN #30 tab PRN Reason: Chest Pain Continue Rivaroxaban [Xarelto] 20 mg PO HS Irbesartan 300 mg PO DAILY Allopurinol [Zyloprim] 300 mg PO HS Omeprazole [PriLOSEC] 20 mg PO AC-BRKFST Levothyroxine Sodium [Synthroid] 200 mcg PO MOTUWETHFRSA Multivitamins, Thera [Multivitamin (formulary)] 1 tab PO HS Flecainide Acetate [Tambocor] 100 mg PO BID PRN PRN Reason: AFIB Ascorbic Acid [Vitamin C] 500 mg PO HS DULoxetine HCL [Cymbalta] 60 mg PO BID Polyethylene Glycol 3350 [Miralax] 17 gm PO DAILY Cbd Cream 1 applic TOPICAL DAILY PRN PRN Reason: Pain Stool Softner 1 tab PO BID amLODIPine [Norvasc] 5 mg PO HS Glimepiride [Amaryl] 1 mg PO BID L.acidoph,Paracasei, B.lactis [Probiotic] 1 cap PO HS Melatonin 10 mg PO HS Pregabalin [Lyrica] 150 mg PO BID Tamsulosin [Flomax] 0.4 mg PO BID traMADol HCL 50 mg PO BID Discharge Medication List Allopurinol [Zyloprim] 300 mg PO HS 12/12/14 [History] Ascorbic Acid [Vitamin C] 500 mg PO HS 12/12/14 [History] Flecainide Acetate [Tambocor] 100 mg PO BID PRN 12/12/14 [History] Irbesartan 300 mg PO DAILY 12/12/14 [History] Levothyroxine Sodium [Synthroid] 200 mcg PO MOTUWETHFRSA 12/12/14 [History] Multivitamins, Thera [Multivitamin (formulary)] 1 tab PO HS 12/12/14 [History] Omeprazole [PriLOSEC] 20 mg PO AC-BRKFST 12/12/14 [History] Rivaroxaban [Xarelto] 20 mg PO HS 12/12/14 [History] Cbd Cream 1 applic TOPICAL DAILY PRN 11/13/20 [History] DULoxetine HCL [Cymbalta] 60 mg PO BID 11/13/20 [History] Glimepiride [Amaryl] 1 mg PO BID 11/13/20 [History] L.acidoph,Paracasei, B.lactis [Probiotic] 1 cap PO HS 11/13/20 [History] Melatonin 10 mg PO HS 11/13/20 [History] Polyethylene Glycol 3350 [Miralax] 17 gm PO DAILY 11/13/20 [History] Pregabalin [Lyrica] 150 mg PO BID 11/13/20 [History] Stool Softner 1 tab PO BID 11/13/20 [History] Tamsulosin [Flomax] 0.4 mg PO BID 11/13/20 [History] amLODIPine [Norvasc] 5 mg PO HS 11/13/20 [History] traMADol HCL 50 mg PO BID 11/13/20 [History] Nitroglycerin Sl Tabs [Nitrostat] 0.4 mg SUBLINGUAL Q5M PRN #30 tab 11/14/20 [Rx] Follow up Appointment(s)/Referral(s): Rivera Black MD [STAFF PHYSICIAN] - 2 Weeks (office will call and set up appointment) Flip Colon DO [Primary Care Provider] - 1-2 days Patient Instructions/Handouts: Chest Pain (DC) Discharge Disposition: HOME SELF-CARE
== END 2020-11-14 11:46 | disposition home or self-care (01) ==
LOC: EC 09:54 → 6NMEDSUR 11:48
PROVIDERS: ADMIT Hospitalist; ATTEND Hospitalist
DX: R07.2 Precordial pain (principal); I48.0 Paroxysmal atrial fibrillation; I10 Essential (primary) hypertension; M1A.9XX0 Chronic gout, unspecified, without tophus (tophi); F32.9 Major depressive disorder, single episode, unspecified; E11.9 Type 2 diabetes mellitus without complications; E03.9 Hypothyroidism, unspecified; K21.9 Gastro-esophageal reflux disease without esophagitis; E66.9 Obesity, unspecified; Z68.33 Body mass index [BMI] 33.0-33.9, adult; N40.0 Benign prostatic hyperplasia without lower urinary tract symptoms; M19.91 Primary osteoarthritis, unspecified site; F51.04 Psychophysiologic insomnia; I25.10 Atherosclerotic heart disease of native coronary artery without angina pectoris; I71.2 Thoracic aortic aneurysm, without rupture; E78.5 Hyperlipidemia, unspecified; H91.90 Unspecified hearing loss, unspecified ear; R11.0 Nausea; Z85.828 Personal history of other malignant neoplasm of skin; Z96.642 Presence of left artificial hip joint; Z79.01 Long term (current) use of anticoagulants; Z79.899 Other long term (current) drug therapy; Z79.890 Hormone replacement therapy; Z79.84 Long term (current) use of oral hypoglycemic drugs; Z88.0 Allergy status to penicillin; Z88.8 Allergy status to other drugs, medicaments and biological substances; Z82.49 Family history of ischemic heart disease and other diseases of the circulatory system
CPT/HCPCS: 93005 ×2; 99285; 36415; 80061; 80053; 83735; 84484; 85025; 85610; 85730; 71046; 71275; G0378 ×2; Q9967

== ENCOUNTER → 2023-03-03 | Outpatient (CLI) | payer MEDICARE ==
--- NOTE | 2023-03-03 10:00 | US ---
EXAMINATION TYPE: US liver DATE OF EXAM: 03/03/2023 COMPARISON: NONE CLINICAL INDICATION: Male, 72 years old with history of K76.0 FATTY LIVER; Patient state he has a fat ty liver. GB removed x >35 years ago TECHNIQUE: Multiple sonographic images of the right upper quadrant are obtained. FINDINGS: EXAM MEASUREMENTS: Liver Length: 20.1 cm CBD: 0.7 cm Right Kidney: 13.2 x 5.0 x 5.8 cm SENIOR DATA SCIENTIST NOTES:suboptimal due to overlying bowel gas Pancreas: limited due to bowel gas, not well visualized Liver: appears enlarged in size, coarse and heterogenous Gallbladder: Surgically absent Evidence for sonographic Corbin's sign: neg CBD: limited due to bowel gas Right Kidney: No prominent hydronephrosis or masses seen, lobular cortex Enlarged liver with coarse minimally hyperechoic heterogenous echotexture. No focal lesion identified . The visualized portions of the pancreas are unremarkable. Gallbladder surgically absent. Visualized portions of common bile duct are within normal limits. Right kidney demonstrates no hydronephrosis, nephrolithiasis or solid mass. IMPRESSION: 1. No acute process. 2. Hepatomegaly with coarsened minimally hyperechoic liver echotexture suggesting fatty infiltration. No focal lesion. 3. Postcholecystectomy changes.
[2023-03-03 16:17] LABS: Basophils # (A) 0.01 X 10*3/uL (0.00-0.10); Basophils % (A) 0.2 %; Eosinophils # (A) 0.08 X 10*3/uL (0.04-0.35); Eosinophils % (A) 1.6 %; HCT 41.3 % (39.6-50.0); HGB 13.6 d/dL (13.0-17.0); Lymphocytes # (A) 0.74 X 10*3/uL (0.90-5.00); Lymphocytes % (A) 14.5 %; MCH 30.4 pg (27.0-32.0); MCHC 32.9 d/dL (32.0-37.0); MCV 92.2 FL (80.0-97.0); Mean Platelet Volume 9.7 FL (9.5-12.2); Monocytes # (A) 0.27 X 10*3/uL (0.20-1.00); Monocytes % (A) 5.3 %; NRBC Per 100 WBC 0 X 10*3/uL (0.00-0.01); Neutrophils % (A) 78.2 %; Platelet Count 147 X 10*3/uL (140-440); RBC 4.48 X 10*6/uL (4.40-5.60); RDW 13.9 % (11.5-14.5); WBC 5.11 X 10*3/uL (4.50-10.00)
[2023-03-03 16:36] LABS: ALT 24 U/L (10-49); AST 24 U/L (14-35); Albumin 4.2 d/dL (3.8-4.9); Albumin/Globulin Ratio 1.91 Ratio (1.60-3.17); Alkaline Phosphatase 142 U/L (41-126); Bilirubin, Conjugated <0.20 mg/dL (0.20-0.40); Bilirubin,Unconjugated >0.20 mg/dL (0.20-1.00); Globulin 2.2 d/dL (1.6-3.3); Total Bilirubin 0.4 mg/dL (0.3-1.2); Total Protein 6.4 d/dL (6.2-8.2)
== END | disposition home or self-care (01) ==
LOC: RADUSWWP 08:53
PROVIDERS: ATTEND Internal Medicine Gastroenterology
DX: K76.0 Fatty (change of) liver, not elsewhere classified (principal); R16.0 Hepatomegaly, not elsewhere classified; Z90.49 Acquired absence of other specified parts of digestive tract
CPT/HCPCS: 76705; 80076; 82105; 85025

== ENCOUNTER → 2023-09-13 | Outpatient (CLI) | payer MEDICARE ==
--- NOTE | 2023-09-13 08:42 | US ---
EXAMINATION TYPE: US liver DATE OF EXAM: 09/13/2023 COMPARISON: 03/03/2023. CLINICAL INDICATION: Male, 73 years old with history of K76.0 FATTY (CHANGE OF) LIVER, NOT ELSEWHERE CLASS; Hx Cholecystectomy TECHNIQUE: Multiple sonographic images of the right upper quadrant are obtained. FINDINGS: EXAM MEASUREMENTS: Liver Length: 14.0 cm Gallbladder Wall: Surgically absent cm CBD: 0.8 cm Right Kidney: 13.0 x 6.2 x 6.0 cm PRINT LINE OPERATOR NOTES: Pancreas: Tail obscured by overlying bowel gas Liver: Limited visualization due to bowel gas; WNL as vis Gallbladder: Surgically absent Evidence for sonographic Corbin's sign: NA CBD: wnl Right Kidney: wnl IMPRESSION: Hepatocellular disease commonly relating to hepatic steatosis. No evidence for acute process.
[2023-09-13 14:36] LABS: Basophils # (A) 0.01 X 10*3/uL (0.00-0.10); Basophils % (A) 0.3 %; Eosinophils # (A) 0.06 X 10*3/uL (0.04-0.35); Eosinophils % (A) 1.7 %; HCT 44.9 % (39.6-50.0); HGB 14.7 g/dL (13.0-17.0); Lymphocytes # (A) 0.87 X 10*3/uL (0.90-5.00); Lymphocytes % (A) 24.9 %; MCH 30.2 pg (27.0-32.0); MCHC 32.7 g/dL (32.0-37.0); MCV 92.4 FL (80.0-97.0); Mean Platelet Volume 10.1 FL (9.5-12.2); Monocytes # (A) 0.26 X 10*3/uL (0.20-1.00); Monocytes % (A) 7.4 %; NRBC Per 100 WBC 0 X 10*3/uL (0.00-0.01); Neutrophils # (A) 2.29 X 10*3/uL (1.80-7.70); Neutrophils % (A) 65.4 %; Platelet Count 138 X 10*3/uL (140-440); RBC 4.86 X 10*6/uL (4.40-5.60); RDW 13.7 % (11.5-14.5)
[2023-09-13 14:54] LABS: ALT 22 U/L (10-49); AST 22 U/L (14-35); Albumin 4.2 g/dL (3.8-4.9); Albumin/Globulin Ratio 1.83 Ratio (1.60-3.17); Alkaline Phosphatase 165 U/L (41-126); Bilirubin, Conjugated <0.20 mg/dL (0.20-0.40); Bilirubin,Unconjugated >0.10 mg/dL (0.20-1.00); Globulin 2.3 g/dL (1.6-3.3); Total Bilirubin 0.3 mg/dL (0.3-1.2); Total Protein 6.5 g/dL (6.2-8.2)
== END | disposition home or self-care (01) ==
LOC: RADUSWWP 08:04
PROVIDERS: ATTEND Internal Medicine Gastroenterology
DX: K76.0 Fatty (change of) liver, not elsewhere classified (principal); K76.89 Other specified diseases of liver
CPT/HCPCS: 76705; 80076; 82105; 85025